=== PATIENT | female | born 1940 | race Caucasian/White ===

== ENCOUNTER 2024-05-01 11:02 | Inpatient (IN) | payer MEDICARE, MEDICAID ==
[~2024-05-01] VITALS: Ht 147.3 cm; Wt 51.3 kg
[2024-05-01 11:54] LABS: BASOPHILS % (AUTO) 0.7 % (0.0-2.0); EOSINOPHILS % (AUTO) 0.3 % (1.0-6.0); HEMATOCRIT 36.7 % (36-46); HEMOGLOBIN 12.1 g/dL (12.0-16.0); LYMPHOCYTES # (AUTO) 2.2 K/uL (1.0-4.8); LYMPHOCYTES % (AUTO) 32.1 % (22.0-44.0); MEAN CORPUSCULAR HEMOGLOBIN 29.6 pg (26.0-34.0); MEAN CORPUSCULAR VOLUME 90 fL (80-100); MONOCYTES # (AUTO) 0.3 K/uL (0.1-1.0); MONOCYTES % (AUTO) 4.2 % (2.0-9.0); NEUTROPHILS # (AUTO) 4.3 K/uL (1.8-7.7); NEUTROPHILS % (AUTO) 62.7 % (40.0-70.0); PLATELET COUNT (AUTO) 305 K/uL (150-450); RED BLOOD CELL COUNT(AUTO) 4.09 MIL/uL (4.00-5.20); WHITE BLOOD COUNT (AUTO) 6.9 K/uL (4.5-11.0)
[2024-05-01] MEDS ORDERED: DOCU-412 PO (11:55)
[2024-05-01] MEDS ORDERED: AMLO10TA55 PO (11:55)
[2024-05-01] MEDS ORDERED: DENO60DI SQ (11:55)
[2024-05-01 12:02] LABS: COVID AG,FIA SOURCE NASAL SWAB
[2024-05-01 12:04] LABS: ANION GAP 11 mmol/L (8-16); CALCIUM, TOTAL 8.1 mg/dL (8.8-10.5); CARBON DIOXIDE 24 mmol/L (22-29); CHLORIDE 103 mmol/L (98-107); CREATININE 0.97 mg/dL (0.60-1.30); GLOMERULAR FILTR. RATE CALC 55 mL/min (>60); GLUCOSE,RANDOM 104 mg/dL (70-110); POTASSIUM 3.7 mmol/L (3.5-5.1); SODIUM SERUM 138 mmol/L (136-145); UREA NITROGEN, BLOOD 29 mg/dL (7-18)
[2024-05-01 12:21] LABS: SARS-COV2 (COVID) ANTIGEN,FIA Negative (Negative)
[2024-05-01 12:40] LABS: ALCOHOL, BLOOD (SERUM) < 3 mg/dL (0-10)
[2024-05-01] MEDS ORDERED: LORazepam 2 MG TABLET PO PRN (13:30)
[2024-05-01] MEDS ORDERED: QUEtiapine FUMARATE 100 MG TABLET PO PRN (13:30)
[2024-05-01] MEDS ORDERED: ZOLPIDEM TARTRATE 10 MG TABLET PO PRN (13:30)
[2024-05-01 15:35] LABS: APPEARANCE,URINE CLEAR (CLEAR); BILIRUBIN,URINE NEGATIVE (NEGATIVE); COLOR,URINE COLORLESS (YELLOW); GLUCOSE, URINE (UA) NEGATIVE (NEGATIVE); KETONES,URINE TRACE mg/dL (NEGATIVE); LEUKOCYTE ESTERASE ,URINE NEGATIVE (NEGATIVE); NITRATE,URINE NEGATIVE (NEGATIVE); OCCULT BLOOD,URINE TRACE (NEGATIVE); PH,URINE 6.5 (5.0-8.0); PH,URINE DRUG SCREEN 6.5 (5.0-8.0); PROTEIN,URINE NEGATIVE (NEGATIVE); SPECIFIC GRAVITIY, URINE 1.007 (1.003-1.030); UROBILINOGEN,URINE <=1.0 mg/dL (<=1.0)
[2024-05-01 15:42] LABS: AMPHET/METH SCREEN,URINE NEGATIVE (NEGATIVE); BARBITURATE SCREEN, URINE NEGATIVE (NEGATIVE); BENZODIAZEPINES SCREEN,URINE NEGATIVE (NEGATIVE); CANNABINOID SCREEN,URINE NEGATIVE (NEGATIVE); COCAINE SCREEN,URINE NEGATIVE (NEGATIVE); METHADONE SCREEN, URINE NEGATIVE (NEGATIVE); OPIATE SCREEN,URINE NEGATIVE (NEGATIVE); PHENCYCLIDINE SCREEN,URINE NEGATIVE (NEGATIVE)
[2024-05-01 15:44] LABS: ALCOHOL, URINE DRUG SCREEN NEGATIVE (NEGATIVE)
[2024-05-01 15:56] LABS: BACTERIA,URINE Rare /HPF (None Seen); RBC,URINE 0-2 /HPF (0-2); SQUAMOUS EPITHELIAL CELL,UR Rare /LPF (None Seen); WBC,URINE 0-2 /HPF (0-5)
[2024-05-01 17:15] VITALS: BP 129/82; PULSE 92; RESP 16; TEMP 97.2; O2SAT 98
[2024-05-01 17:27] VITALS: BP 129/82; PULSE 92; RESP 16; TEMP 97.2; O2SAT 98
[2024-05-01 20:57] VITALS: BP 121/61; PULSE 100; RESP 18; TEMP 97.9; O2SAT 96
[2024-05-01 21:01] VITALS: BP 121/61; PULSE 100; RESP 18; TEMP 97.9; O2SAT 96
[2024-05-02] MEDS: AmLODIPine BESYLATE 10 MG TABLET PO SCH (08:44)
[2024-05-02 08:57] VITALS: BP 131/67; PULSE 90; RESP 18; TEMP 98.4; O2SAT 95
[2024-05-02] MEDS: ESCITALOPRAM OXALATE 10 MG TABLET PO SCH (10:15)
[2024-05-02 10:16] VITALS: BP 131/67; PULSE 90; RESP 18; TEMP 98.4; O2SAT 95
[2024-05-02] MEDS ORDERED: CloNIDine HCL 0.1 MG TABLET PO PRN (12:15)
[2024-05-02] MEDS ORDERED: ACETAMINOPHEN 325 MG TABLET PO PRN (12:15)
[2024-05-02] MEDS ORDERED: DOCUSATE SODIUM 100 MG CAPSULE PO PRN (12:15)
[2024-05-02] MEDS ORDERED: IBUPROFEN 400 MG TABLET PO PRN (12:15)
[2024-05-02] MEDS ORDERED: GuaiFENesin/D-METHORPHAN [SUGAR-FREE] 200-20MG/10 ML SYRUP UDCUP PO PRN (12:15)
[2024-05-02] MEDS ORDERED: ALBUTEROL SULFATE HFA 90 MCG/PUFF 8 GM INHALER IH PRN (12:15)
[2024-05-02] MEDS ORDERED: PETROLATUM,WHITE 28 GM JELLY TP PRN (12:15)
[2024-05-02] MEDS ORDERED: ZOLPIDEM TARTRATE 5 MG TABLET PO PRN (12:15)
[2024-05-02] MEDS ORDERED: MAG HYDROX/ALUMINUM HYD/SIMETH ES 30 ML SUSPENSION UDCUP PO PRN (12:15)
[2024-05-02] MEDS ORDERED: LOPERAMIDE HCL 2 MG CAPSULE PO PRN (12:15)
[2024-05-02] MEDS ORDERED: QUEtiapine FUMARATE 25 MG TABLET PO PRN (12:15)
[2024-05-02] MEDS ORDERED: LORazepam 1 MG TABLET PO PRN (12:15)
[2024-05-02] MEDS ORDERED: ONDANSETRON 4 MG TABLET PO PRN (12:15)
[2024-05-02] MEDS ORDERED: MAGNESIUM HYDROXIDE SUSPENSION 30 ML UDCUP PO PRN (12:15)
[2024-05-02] MEDS ORDERED: NICOTINE 14 MG/24 HOUR PATCH TD PRN (12:15)
[2024-05-02 20:03] VITALS: BP 104/56; PULSE 71; RESP 16; TEMP 98; O2SAT 97
[2024-05-03 08:40] LABS: HEMOGLOBIN A1C 5.5 % (3.8-5.6)
[2024-05-03 08:45] LABS: THYROID STIMULATING HORMONE 3.7 uIU/mL (0.36-3.74)
[2024-05-03 09:15] LABS: CHOL/HDL RATIO 4.6 (3.9-5.7)
[2024-05-03 09:45] VITALS: BP 137/77; PULSE 83; RESP 17; TEMP 97.9; O2SAT 100
[2024-05-03 20:48] VITALS: BP 130/69; PULSE 82; RESP 18; TEMP 97.6; O2SAT 98
[2024-05-04 09:22] VITALS: BP 140/75; PULSE 82; RESP 14; TEMP 98.1; O2SAT 96
[2024-05-04 20:35] VITALS: BP 116/76; PULSE 82; RESP 17; TEMP 98.1; O2SAT 98
[2024-05-05 10:01] VITALS: BP 143/77; PULSE 81; RESP 18; TEMP 97.8; O2SAT 99
[2024-05-05 20:40] VITALS: BP 144/84; PULSE 100; RESP 18; TEMP 98.1; O2SAT 97
[2024-05-06 10:46] VITALS: BP 129/65; PULSE 87; RESP 18; TEMP 98.7; O2SAT 98
[2024-05-06] MEDS ORDERED: AMLO-258 PO (16:49)
[2024-05-06] MEDS ORDERED: ESCI-8 PO (16:50)
[2024-05-06 20:18] VITALS: BP 128/73; PULSE 83; RESP 18; TEMP 97.9; O2SAT 98
[2024-05-07 08:54] VITALS: BP 152/75; PULSE 88; RESP 18; TEMP 98.2; O2SAT 100
== END 2024-05-07 17:49 | disposition home or self-care (01) | DRG 885 ==
LOC: EMS 11:02 → 3EX 14:46
PROVIDERS: ADMIT Psychiatry & Neurology Psychiatry; ATTEND Psychiatry & Neurology Psychiatry
DX: F33.3 Major depressive disorder, recurrent, severe with psychotic symptoms (principal); R45.851 Suicidal ideations; I10 Essential (primary) hypertension; Z20.822 Contact with and (suspected) exposure to COVID-19; K59.00 Constipation, unspecified; R79.89 Other specified abnormal findings of blood chemistry; Z79.899 Other long term (current) drug therapy
CPT/HCPCS: 80048; 80061; 80307; 81001; 83036; 84443; 85025; 87081; 99285; G0378; G0480